=== PATIENT | male | born 1980 | race Caucasian/White ===

== ENCOUNTER → 2017-11-03 | Outpatient (CLI) | payer OTHER ==
[~2017-11-03] MED LIST: AMOCLA875 PO; CEPH500 PO; ERYT.5TO LEFTEYE; HYDACE5 PO; HYDACE5325 PO; OXYACE5T PO; SULTRIDS PO
== END | disposition home or self-care (01) ==
LOC: LAB SHORT 08:06 → LAB 08:06
DX: F10.99 Alcohol use, unspecified with unspecified alcohol-induced disorder (principal)

== ENCOUNTER 2021-02-07 11:00 | Emergency (ER) | payer OTHER ==
[~2021-02-07] VITALS: Ht 177.8 cm; Wt 81.7 kg
== END 2021-02-07 11:47 | disposition home or self-care (01) ==
LOC: ER 11:00
DX: S60.552A Superficial foreign body of left hand, initial encounter (principal); F17.210 Nicotine dependence, cigarettes, uncomplicated; Z23 Encounter for immunization; W45.8XXA Other foreign body or object entering through skin, initial encounter
CPT/HCPCS: 10120; 90471; 90714; 99282-25